=== PATIENT | female | born 1945 ===

== ENCOUNTER 2018-11-23 13:44 | Inpatient (IN) | payer OTHER ==
--- NOTE | 2018-11-23 13:54 | C.PDOC ---
History Of Present Illness 73 y/o female pt presents to the ER c/o left 4th finger pain. Pt reports she was in her bedroom today when she got up and felt dizzy and almost passed out. Pt fell and landed on her left hand, injuring her finger. Associated sx includes intermittent dizziness. Pt denies headache, chest pain and SOB. Time Seen by Provider: 11/23/18 13:52 History Per: Patient History/Exam Limitations: no limitations Onset/Duration Of Symptoms: Hrs Current Symptoms Are (Timing): Still Present Quality: "Pain" Severity: Moderate Pain Scale Rating Of: 5 Past Medical History Reviewed: Historical Data, Nursing Documentation, Vital Signs - Medical History PMH: Anemia, Dementia, Depression, Diabetes, Gall Bladder Disease, HTN, Hypercholesterolemia, Hyperthyroidism, Hypothyroidism Surgical History: Appendectomy, Cholecystectomy - [facility] Procedures EXERCISE TREATMENT OF MUSCULOSK WHOLE USING ASSIST EQUIPMENT (03/22/18) INDIVIDUAL PSYCHOTHERAPY, BEHAVIORAL (03/22/18) Family History: States: Unknown Family Hx - Social History Hx Tobacco Use: No Hx Alcohol Use: No Hx Substance Use: No Review Of Systems Except As Marked, All Systems Reviewed And Found Negative. Cardiovascular: Negative for: Chest Pain Respiratory: Negative for: Shortness of Breath Musculoskeletal: Positive for: Other (left 4th finger pain ) Neurological: Positive for: Dizziness (intermittent ). Negative for: Headache Physical Exam - Physical Exam Appears: Non-toxic, No Acute Distress Skin: Warm, Dry Head: Atraumatic, Normacephalic, No Tenderness, No Swelling, No Abrasion Eye(s): bilateral: Normal Inspection, PERRL, EOMI Ear(s): Bilateral: Normal Nose: Normal Oral Mucosa: Moist Tongue: Normal Appearing Lips: Normal Appearing Teeth: Normal Dentition Throat: Normal Neck: Normal ROM, No Midline Cervical Tenderness, No Paracervical Tenderness, Supple Chest: Symmetrical, No Deformity, No Tenderness Cardiovascular: Rhythm Regular Respiratory: Normal Breath Sounds, No Rales, No Rhonchi, No Wheezing Gastrointestinal/Abdominal: Soft, No Tenderness Back: Normal Inspection Extremity: Normal ROM (x4), Capillary Refill (<2 sec), Deformity (left 4th finger), Swelling (left 4th finger ), Other (ecchymosis on left 4th finger ) Pulses: Left Radial: Normal, Right Radial: Normal Neurological/Psych: Oriented x3, Normal Speech, Normal Cognition, Normal Motor, Normal Sensation, Normal Reflexes, No Other (ataxia ) Gait: Steady ED Course And Treatment - Laboratory Results Result Diagrams: 11/23/18 14:24 11/23/18 14:24 ECG Rhythm: Sinus Tachycardia Interpretation Of ECG: Q waves no ST elevation Rate From EC - Other Rad left hand 4th finger X-Ray: Interpreted by Me, Viewed By Me Interpretation: proximal interphalangeal joint dislocation in 4th finger Medical Decision Making Medical Decision Making: Plans: -- EKG -- Chem labs -- blood work -- antivert -- ibuprofen -- left hand XR -- UA 3:57 Dr. Suarez accepted patient to telemetry Reassess: left 4th finger was reduced by pulling and splinted. Pt was instructed to f/u with hand specialist in 1-2 days. Pt neurovascular exam was normal after reduction and patient tolerated the procedure well. Disposition Discussed With : Emmett Suarez Doctor Will See Patient In The: Hospital Counseled Patient/Family Regarding: Studies Performed, Diagnosis - Disposition Disposition: HOSPITALIZED Disposition Time: 15:38 Condition: GUARDED - Clinical Impression Clinical Impression: Fracture/dislocation, finger, proximal/middle phalanx, Uncontrolled diabetes mellitus, Dizziness, Near syncope - Scribe Statement The provider has reviewed the documentation as recorded by the Scribe Perez Do Provider Attestation: All medical record entries made by the Scribe were at my direction and personally dictated by me. I have reviewed the chart and agree that the record accurately reflects my personal performance of the history, physical exam, medical decision making, and the department course for this patient. I have also personally directed, reviewed, and agree with the discharge instructions and disposition.
[2018-11-23 13:55] VITALS: BMI 23.9
[2018-11-23 14:27] LABS: BASO % 0.5 % (0.0-2.0); EOS % 0.3 % (0.0-4.0); HEMOGLOBIN 15.7 g/dL (11.0-16.0); LYMPH # 2.1 K/uL (1.0-4.3); LYMPH % 24.5 % (20.0-40.0); MEAN CELL VOLUME 92.4 fL (81.0-99.0); MEAN CORPUSCULAR HGB CONC 33.6 g/dL (33.0-37.0); MEAN PLATELET VOLUME 8.2 fL (7.2-11.7); MONO # 0.5 K/uL (0.0-0.8); MONO % 5.4 % (0.0-10.0); NEUT # 5.8 K/uL (1.8-7.0); NEUT % 69.3 % (50.0-75.0); NRBC % 0.1 % (0.0-2.0); RBC 5.04 Mil/uL (3.80-5.20); RED CELL DISTRIBUTION WIDTH 14.2 % (11.5-14.5); WHITE BLOOD COUNT 8.4 K/uL (4.8-10.8)
--- NOTE | 2018-11-23 14:39 | RAD ---
PROCEDURE: Left Hand Radiographs. HISTORY: trauma COMPARISON: None. FINDINGS: BONES: There is diffuse bone demineralization. There is dorsal and medial subluxation of the proximal interphalangeal joint of the 4th digit. There is a small ossific density lateral to the base of the proximal phalanx.. There is an expansile lytic lesion in the base of the proximal phalanx of the 2nd digit with presumable central calcifications which may represent an enchondroma. JOINTS: Mild degenerative osteoarthrosis in the interphalangeal joints. SOFT TISSUES: Soft tissue swelling in the proximal 4th digit. OTHER FINDINGS: None. IMPRESSION: Question of small avulsion fracture in the lateral base of the proximal phalanx of the 4th digit. Dorsal and medial subluxation of the proximal interphalangeal joint of the 4th digit with surrounding soft tissue swelling.
[2018-11-23 14:46] LABS: SQUAMOUS EPITHIAL 2 /hpf (0-5); URINE BILIRUBIN NEGATIVE (NEGATIVE); URINE BLOOD NEGATIVE (NEGATIVE); URINE CLARITY Clear (Clear); URINE COLOR Yellow (YELLOW); URINE GLUCOSE (UA) 3+ mg/dL (Normal); URINE LEUKOCYTE ESTERASE NEG Leu/uL (Negative); URINE PROTEIN NEGATIVE (NEGATIVE); URINE UROBILINOGEN NORMAL mg/dL (0.2-1.0)
[2018-11-23] MEDS ORDERED: Sodium Chloride 0.9% 1,000 ML IV ONE (14:50)
[2018-11-23 14:51] LABS: ALB/GLOB RATIO 1.3 (1.0-2.1); ALBUMIN 4.3 g/dL (3.5-5.0); ALT/SGPT 265 U/L (9-52); AST/SGOT 67 U/L (14-36); BLOOD UREA NITROGEN 16 mg/dL (7-17); CALCIUM 9.1 mg/dl (8.6-10.4); GFR NON-AFRICAN AMERICAN > 60
[2018-11-23] MEDS ORDERED: (Novolin R) Insulin Human Regular 100 units/ml vial IVP STA (14:51)
[2018-11-23] MEDS ORDERED: Sodium Chloride 0.9% 1,000 ML ONE (15:09)
[2018-11-23 15:12] LABS: VENOUS BLOOD GAS BASE EXCESS -1.4 mmol/L (0.0-2.0); VENOUS BLOOD GAS PCO2 36 mmHg (40-60); VENOUS BLOOD GAS PO2 49 mm/Hg (30-55); VENOUS BLOOD PH 7.41 (7.32-7.43)
[2018-11-23] MEDS ORDERED: (Novolin R) Insulin Human Regular 100 units/ml vial ONE (15:13)
[2018-11-23] MEDS ORDERED: Glucagon Recombinant 1 mg Inj IM PRN (16:38)
[2018-11-23] MEDS ORDERED: Dextrose 50% SYRINGE Inj (50 ml) IV PRN (16:38)
--- NOTE | 2018-11-23 16:40 | CT ---
Date of service: 11/23/2018 PROCEDURE: CT HEAD WITHOUT CONTRAST HISTORY: Dizzy COMPARISON: None available. TECHNIQUE: Axial computed tomography images were obtained through the head/brain with intravenous contrast. Radiation dose: Total exam DLP = 1056.71 mGy-cm. This CT exam was performed using one or more of the following dose reduction techniques: Automated exposure control, adjustment of the mA and/or kV according to patient size, and/or use of iterative reconstruction technique. FINDINGS: HEMORRHAGE: No intracranial hemorrhage. BRAIN: There are mild chronic microangiopathic changes. There is no mass, mass effect or abnormal extra-axial fluid collection. There is no territorial infarction. The midline sagittal structures are normal. VENTRICLES: There is moderate age-related global parenchymal volume loss and proportionate enlargement of the ventricles and cortical sulci. CALVARIUM: The skull base and calvarium are normal. PARANASAL SINUSES: Unremarkable as visualized. No significant inflammatory changes. MASTOID AIR CELLS: Unremarkable as visualized. No mastoid effusion. OTHER FINDINGS: None. IMPRESSION: No acute intracranial abnormality. Mild chronic changes and moderate age-related global parenchymal volume loss.
--- NOTE | 2018-11-23 16:48 | RAD ---
Date of service: 11/23/2018 PROCEDURE: CHEST RADIOGRAPH, 1 VIEW HISTORY: weak COMPARISON: None available. FINDINGS: LUNGS: Clear. PLEURA: No pneumothorax or pleural fluid seen. CARDIOVASCULAR: Atherosclerotic calcifications identified primarily aortic arch. No radiographic findings to suggest acute or significant cardiovascular disease. OSSEOUS STRUCTURES: No significant abnormalities. VISUALIZED UPPER ABDOMEN: Normal. OTHER FINDINGS: Small hiatal hernia. IMPRESSION: No active disease.
[2018-11-23] MEDS ORDERED: Potassium Chloride 20 mEq ER Tab PO STA (17:27)
[2018-11-23] MEDS: (Novolog) Insulin Aspart, Recombinant 100 u/ml 10 ml vial SC SCH (21:22)
[2018-11-23] MEDS: (Lantus) Insulin Glargine, Recombinant SC SCH (22:54)
[2018-11-24] MEDS: Sodium Chloride 0.9% 1,000 ML IV SCH ×2 (02:30→14:45)
[2018-11-24] MEDS: Levothyroxine 75 MCG TAB PO SCH (06:22)
[2018-11-24] MEDS: (Novolog) Insulin Aspart, Recombinant 100 u/ml 10 ml vial SC SCH ×7 (07:23→21:26)
[2018-11-24 07:44] LABS: ALB/GLOB RATIO 1.2 (1.0-2.1); ALBUMIN 3.5 g/dL (3.5-5.0); ALT/SGPT 172 U/L (9-52); AST/SGOT 36 U/L (14-36); BILIRUBIN,DIRECT 0.3 mg/dL (0.0-0.4); BLOOD UREA NITROGEN 15 mg/dL (7-17); CALCIUM 8.6 mg/dl (8.6-10.4); GFR NON-AFRICAN AMERICAN > 60
[2018-11-24] MEDS: Pantoprazole 40 mg EC Tab PO SCH (09:22)
[2018-11-24] MEDS: Enoxaparin 40 mg Syringe SC SCH (09:23)
[2018-11-24] MEDS: (Lantus) Insulin Glargine, Recombinant SC SCH ×2 (21:25→21:27)
--- NOTE | 2018-11-24 22:22 | CP.PCM.HP ---
Past Patient History - Past Medical History & Family History Past Medical History?: Yes - Past Social History Smoking Status: Never Smoked - CARDIAC Hx Hypercholesterolemia: Yes Hx Hypertension: Yes - PULMONARY Hx Respiratory Disorders: No - NEUROLOGICAL Hx Dementia: Yes - HEENT Hx HEENT Problems: No - RENAL Hx Chronic Kidney Disease: No - ENDOCRINE/METABOLIC Hx Hyperthyroidism: Yes Hx Hypothyroidism: Yes - HEMATOLOGICAL/ONCOLOGICAL Hx Anemia: Yes - INTEGUMENTARY Hx Dermatological Problems: No - MUSCULOSKELETAL/RHEUMATOLOGICAL Hx Falls: Yes - GASTROINTESTINAL Hx Gall Bladder Disease: Yes - GENITOURINARY/GYNECOLOGICAL Hx Genitourinary Disorders: No - PSYCHIATRIC Hx Depression: Yes Hx Substance Use: No - SURGICAL HISTORY Hx Appendectomy: Yes Hx Cholecystectomy: Yes - ANESTHESIA Hx Anesthesia: Yes Hx Anesthesia Reactions: No Hx Malignant Hyperthermia: No Meds Allergies/Adverse Reactions: Allergies Allergy/AdvReac Type Severity Reaction Status Date / Time No Known Allergies Allergy Verified 11/23/18 14:25 Results - Vital Signs Recent Vital Signs: Last Vital Signs Temp 97.7 F 11/24/18 07:00 Pulse 84 11/24/18 12:00 Resp 20 11/24/18 07:00 BP 125/76 11/24/18 09:22 Pulse Ox 96 11/24/18 07:00 - Labs Result Diagrams: 11/23/18 14:24 11/24/18 07:02 Labs: Laboratory Results - last 24 hr 11/24/18 11/24/18 11/24/18 06:16 07:02 07:02 Sodium 140 Potassium 3.7 Chloride 109 H Carbon Dioxide 25 Anion Gap 10 BUN 15 Creatinine 0.5 L Est GFR ( Amer) > 60 Est GFR (Non-Af Amer) > 60 POC Glucose (mg/dL) 134 H Random Glucose 102 D Hemoglobin A1c Calcium 8.6 Total Bilirubin 0.4 Direct Bilirubin 0.3 AST 36 D ALT 172 H D Alkaline Phosphatase 191 H D Troponin I < 0.0120 Total Protein 6.5 Albumin 3.5 Globulin 3.0 Albumin/Globulin Ratio 1.2 TSH 3rd Generation 6.53 H 11/24/18 11/24/18 11/24/18 07:02 12:24 16:51 Sodium Potassium Chloride Carbon Dioxide Anion Gap BUN Creatinine Est GFR ( Amer) Est GFR (Non-Af Amer) POC Glucose (mg/dL) 142 H 245 H Random Glucose Hemoglobin A1c 11.6 H Calcium Total Bilirubin Direct Bilirubin AST ALT Alkaline Phosphatase Troponin I Total Protein Albumin Globulin Albumin/Globulin Ratio TSH 3rd Generation
[2018-11-25] MEDS: Levothyroxine 75 MCG TAB PO SCH (05:52)
[2018-11-25] MEDS: (Novolog) Insulin Aspart, Recombinant 100 u/ml 10 ml vial SC SCH ×7 (08:15→21:50)
--- NOTE | 2018-11-25 08:30 | HP ---
CHIEF COMPLAINT: Pain in the left fourth finger x1 day. HISTORY OF PRESENT ILLNESS: This is a 73-year-old female with history of type 2 diabetes, hypertension, hyperlipidemia who is noncompliant with diet and medication and follow up and on the day of admission, she was going to her bathroom, she got dizzy and she almost passed out and she hurt her left fourth digit, which is swollen red and warm. The patient landed on her left hand. The patient has dizziness and according to the patient when she gets up, she is dizzy. The patient is extremely noncompliant. She is poor historian. She denies any chest pain. She has weakness, palpitation, dizziness. She has polyuria, polydipsia, polyphagia. She denies any hematuria or pyuria. She denies any sneezing, itchy eyes, itchy nose. There is no history of prior trauma, fall, or head injury. There is no history of cough, sore throat. There is no history of nausea, vomiting, diarrhea. There is no history of skin rash, itchy eyes, itchy nose. She has tingling and numbness in the feet. She denies any symptoms in the hand before this injury. PAST MEDICAL HISTORY: Diabetes, hypertension, hyperlipidemia, noncompliant. CURRENT MEDICATIONS: She is on metformin, Klonopin, Ambien, Seroquel, Protonix, Synthroid, lisinopril, Humalog, Tresiba, Depakote, Lipitor, and aspirin. ALLERGIES: UNKNOWN. PHYSICAL EXAMINATION GENERAL: An elderly female, in distress, complaining of dizziness. VITAL SIGNS: Blood pressure 127/80, pulse 80, respiratory rate 18, temperature 97.6. SKIN: Dry, poor turgor. HEENT: Atraumatic, normocephalic. Negative pallor. Negative jaundice. Extraocular movements are intact. NECK: Supple without neck pain. No JVD. No lymph node. CHEST: Chest wall, bilateral symmetrical expansion. LUNGS: Clear. No rales. No rhonchi. CARDIOVASCULAR SYSTEM: PMI not localized. S1 and S2 regular. No heave. No thrill. ABDOMEN: Soft, nontender. Bowel sounds are positive. RECTAL: No masses. No bleed. EXTREMITIES: No clubbing, cyanosis, or edema. Left fourth finger is swollen, red and warm and it has an immobilizer on it. CENTRAL NERVOUS SYSTEM: The patient is awake, alert, and oriented x3. Cranial nerves II through XII are normal. Gait, I am unable to check. She is dizzy. ASSESSMENT: 1. Dehydration with poorly controlled diabetes. The patient's sugars were high, although ketones are negative. 2. Hypertension. 3. Type 2 diabetes. 4. Fall with left hand injury. PLAN: Admit. Detailed orders are written. Seen and examined. Emmett Suarez MD
[2018-11-25] MEDS: Enoxaparin 40 mg Syringe SC SCH (10:09)
[2018-11-25] MEDS: Pantoprazole 40 mg EC Tab PO SCH (10:09)
--- NOTE | 2018-11-25 14:51 | CARD ---
APPROVED REPORT Date of service: 11/23/2018 EKG Measurement Heart [id number] <Conclusion> Sinus tachycardia Right superior axis deviation Inferior infarct, age undetermined Cannot rule out Anterior infarct, age undetermined Abnormal ECG
[2018-11-25] MEDS: (Lantus) Insulin Glargine, Recombinant SC SCH (21:50)
--- NOTE | 2018-11-25 22:38 | CP.PCM.PN ---
Subjective - Subjective Subjective: dictated Objective - Vital Signs/Intake and Output Vital Signs (last 24 hours): Temp Pulse Resp BP Pulse Ox 98.3 F 76 20 125/79 96 11/25/18 15:46 11/25/18 15:46 11/25/18 15:46 11/25/18 15:46 11/25/18 15:46 - Medications Medications: Current Medications Acetaminophen (Tylenol 325mg Tab) 650 mg PO Q6 PRN PRN Reason: Pain, moderate (4-7) Last Admin: 11/25/18 08:25 Dose: 650 mg Aspirin (Ecotrin) 81 mg PO DAILY [facility] Last Admin: 11/25/18 10:08 Dose: 81 mg Clonazepam (Klonopin) 0.5 mg PO Q8H [facility] Last Admin: 11/25/18 18:23 Dose: 0.5 mg Dextrose (Dextrose 50% Inj) 0 ml IV STAT PRN; Protocol PRN Reason: Hypoglycemia Protocol Dextrose (Glutose 15) 0 gm PO ONCE PRN; Protocol PRN Reason: Hypoglycemia Protocol Enoxaparin Sodium (Lovenox) 40 mg SC DAILY [facility] Last Admin: 11/25/18 10:09 Dose: 40 mg Glucagon (Glucagen Diagnostic Kit) 0 mg IM STAT PRN; Protocol PRN Reason: Hypoglycemia Protocol Dextrose (Dextrose 5% In Water 1000 Ml) 1,000 mls @ 0 mls/hr IV .Q0M PRN; Protocol PRN Reason: Hypoglycemia Protocol Insulin Aspart (Novolog) 0 unit SC ACHS [facility]; Protocol Last Admin: 11/25/18 21:50 Dose: Not Given Insulin Aspart (Novolog) 5 unit SC AC [facility] Last Admin: 11/25/18 16:49 Dose: Not Given Insulin Glargine (Lantus) 20 unit SC HS [facility] Last Admin: 11/25/18 21:50 Dose: Not Given Levothyroxine Sodium (Synthroid) 75 mcg PO 0630 [facility] Last Admin: 11/25/18 05:52 Dose: 75 mcg Meclizine HCl (Antivert) 25 mg PO Q8 PRN PRN Reason: Dizziness Metformin HCl (Glucophage) 500 mg PO BIDCC [facility] Last Admin: 11/25/18 18:20 Dose: 500 mg Pantoprazole Sodium (Protonix Ec Tab) 40 mg PO DAILY [facility] Last Admin: 11/25/18 10:09 Dose: 40 mg Quetiapine Fumarate (Seroquel) 400 mg PO HS [facility] Last Admin: 11/25/18 21:51 Dose: 400 mg Rosuvastatin Calcium (Crestor) 40 mg PO HS [facility] Zolpidem Tartrate (Ambien) 5 mg PO [facility] Last Admin: 11/25/18 21:50 Dose: 5 mg - Labs Labs: 11/23/18 14:24 11/24/18 07:02
--- NOTE | 2018-11-26 02:55 | CON ---
DATE: 11/25/2018 REASON FOR CONSULTATION: Dizziness. HISTORY OF PRESENT ILLNESS: The patient is a 73-year-old female who according to her has history of dizziness and multiple falls in the past. She sustained a dizzy spell at home, fell and fractured and sustained and left fourth finger pain. The patient denies losing consciousness and denies any head injury. The patient denies any major injury or fracture during her previous falls. The patient stated that she fell on the wooden floor at home, and she lives by herself. Her children live in [place]. The patient is unaware of any chest pain and does not recall experiencing palpitation prior to her fall episode. SOCIAL HISTORY Nonsmoker, nondrinker. She lives by herself. MEDICATIONS: Antivert 25 mg every 8 hours, Crestor 40 mg once a day, aspirin 81 mg once a day, metformin 500 mg twice a day, Lovenox 40 mg subcutaneous once a day, Protonix 40 mg p.o. once a day, Synthroid 75 mcg once a day, Seroquel 200 mg at bedtime. REVIEW OF SYSTEMS No nausea or vomiting. No fever or chills. PAST MEDICAL HISTORY: No history of stroke or heart attack according to the patient. PHYSICAL EXAMINATION: GENERAL: The patient is an elderly female who does not appear to be in acute distress. VITAL SIGNS: Blood pressure 119/76, heart rate 79, temperature 98.2, respirations 18. HEENT: Normocephalic. CHEST: Clear. HEART: S1 and S2 regular. ABDOMEN: Soft. EXTREMITIES: No edema. Support is applied to the left ring finger. LABORATORY DATA: Yesterday's SMA-7, sodium 140, potassium 3.7, chloride 109, CO2 of 25, glucose 102, BUN 15, creatinine 0.5. Alkaline phosphatase is elevated at 172. Two sets of troponins are negative. Blood sugar on admission was 462 and potassium on admission was 3.4. Alkaline phosphatase on admission was 253. CBC on admission 2 days ago was within normal limits. Repeat head CT scan without contrast showed no acute intracranial abnormality. Mild chronic changes and moderate age-related global parenchymal volume loss. Echocardiography study performed in March of last year was a normal study. Admitting EKG revealed sinus tachycardia at the rate of 105, old inferior infarct and poor R-wave progression. ASSESSMENT: 1. Near-syncopal episode and fall. Hand x-ray revealed questionable small avulsion fracture of the lateral base of the proximal phalanx of the fourth digit, dorsal and medial subluxation of the proximal interphalangeal joint of the fourth digit. 2. Uncontrolled diabetes mellitus. 3. Hypokalemia, on presentation. 4. Cholestasis. 5. 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 RECOMMENDATIONS: Hold Crestor therapy for now. Continue aspirin 81 mg once a day, subcutaneous Lovenox 40 mg daily, Synthroid 75 mcg once a day. TSH level is still elevated at 6.53. Obtain serum D-dimer and carotid Doppler and consider abdominal ultrasound. Koko Collins MD
--- NOTE | 2018-11-26 03:23 | PN ---
DATE: 11/25/2018 SUBJECTIVE: The patient, Felipa, is likely less dizziness. Her blood pressure is better. She is afebrile. Her blood sugars are relatively better controlled. No nausea or vomiting. PHYSICAL EXAMINATION: VITAL SIGNS: Blood pressure 125/79, pulse 73, respiratory rate 20, and temperature 98.3. LUNGS: Clear. CARDIOVASCULAR SYSTEM: S1 and S2 regular. ABDOMEN: Soft, nontender. Bowel sounds are positive. ASSESSMENT: 1. Dizziness, near syncope. Status post intravenous hydration. Blood pressure medication has been reduced. 2. Poorly controlled diabetes. It is under better control. 3. Vertigo. 4. Osteoarthritis. PLAN: Continue current medications and cardiology evaluation. Monitor the patient. Emmett Suarez MD
--- NOTE | 2018-11-26 05:04 | CON ---
DATE: 11/25/2018 PSYCHIATRIC CONSULTATION CHIEF COMPLAINT AND REASON FOR CONSULTATION: The patient was referred by Dr. Suarez as the patient has history of bipolar and dementia, review of multiple psych medications. The patient states that she is dizzy and was passed off, history of falling. HISTORY OF PRESENT ILLNESS: This is a case of a 73-year-old female who came to the emergency room complaining of left fourth finger pain. The patient reports that she was in her bedroom and got dizzy after she got up and almost passed off. She fell, landed on her left hand injuring her finger. The patient has intermittent dizziness. The patient referred for comanagement as the patient has history of bipolar and dementia. The patient had previous admission at [facility] for depression and history of suicidal attempts and drug overdose. The patient states that she has been following by Dr. Laura German, psychiatrist for many, many years, and the patient states that she also sees Dr. Mccallum, but the patient reports that her doctor recently retired. She was given a few months refill and was given the following medications, Seroquel 400 mg at bedtime, Ambien 10 mg at bedtime, and Klonopin 0.5 mg 3 times a day. She has been compliant with medications but having some increase in her somatic symptoms. The patient is worried that she will have no psychiatrist to give her medications, so far she has some refills. The patient is also forgetful and also concerned about medical problems. She states she sees Dr. Mccallum. PAST PSYCHIATRIC HISTORY: History of dementia and bipolar; history of depression, on Klonopin, Seroquel and Ambien. PAST MEDICAL HISTORY: History of anemia, diabetes, gallbladder disease, hypertension, hypercholesteremia, hypothyroidism, history of appendectomy and cholecystectomy. DRUG AND ALCOHOL HISTORY: She denies any. ALLERGIES: NO KNOWN ALLERGIES. PSYCHOSOCIAL HISTORY: The patient lives by herself. The patient is retired. LIST OF CURRENT MEDICATIONS: Includes meclizine 25 mg every 8 hours, Crestor, Ecotrin, Glucophage. The patient was taking Klonopin 0.5 mg every 8 p.r.n. as well Seroquel 200 mg at bedtime and then Synthroid as well as Tylenol, Protonix, and Glucophage. PHYSICAL EXAMINATION: VITAL SIGNS: Temperature is 98.3, pulse rate 76, blood pressure 125/79, respirations 20, and oxygen saturation is 96%. REVIEW OF SYSTEMS: GENERAL: The patient is alert, verbal, seen with her family member, anxious. She wants her Seroquel, Klonopin, and Ambien. She says she has been not sleeping well, feeling anxious.without her previous doses of psych meds. SKIN: No diaphoresis. HEENT: Complaining of headache with dizziness. The patient is still eating. NECK: Supple. RESPIRATORY: No dyspnea. CARDIOVASCULAR: No chest pain. GASTROINTESTINAL: No nausea. No vomiting. EXTREMITIES: The patient moves extremities. MUSCULOSKELETAL: Feels weak. NEUROLOGIC: Alert and oriented x3. GENITOURINARY: No urinary problems. MENTAL STATUS EXAMINATION: Elderly female who looks stated age. Very anxious, somatic. Clinically depressed. Affect is reactive. Speech, spontaneous. Thought process, coherent. Thought content, no overt psychosis. No suicidal or homicidal ideation. The patient wants to resume her Seroquel 400 at bedtime, Ambien 10 as well as Klonopin 0.5 mg three times a day. I have told her that we do not give 10 mg of Ambien, give only 5, per pharmacy protocol which she is willing to do. The patient states that she is looking for new psychiatrist to follow her as Dr. German retired from her practice 10/2018. Stated no psychosis. No suicidal or homicidal ideation. Attention and memory, limited. Insight and judgment, limited. Impulse control is fair at this time. The patient is oriented x3 but forgetful. IMPRESSION: History of dementia with mood changes as well as bipolar disorder. PLAN AND RECOMMENDATIONS: The patient was seen. Meds reviewed. We will give Ambien 5 mg at bedtime as well as change the Klonopin to 0.5 mg every 8H standing and then change the dose of Seroquel to 400 mg at bedtime. We will monitor her vital signs. The patient needs to see another psychiatrist as her psychiatrist retired and needs to be followed up. Continue treatment plan as outlined. The patient's blood sugars seem to be controlled. Her B12 level now is 50. Her folate is greater than 20 and then her T4 is 7.88. Thank you very much for the consult. Rancho Cordero MD [facility]
[2018-11-26] MEDS: Levothyroxine 75 MCG TAB PO SCH (05:38)
[2018-11-26] MEDS: (Novolog) Insulin Aspart, Recombinant 100 u/ml 10 ml vial SC SCH ×7 (08:18→21:44)
[2018-11-26] MEDS: Enoxaparin 40 mg Syringe SC SCH (10:34)
[2018-11-26] MEDS: Pantoprazole 40 mg EC Tab PO SCH (10:34)
--- NOTE | 2018-11-26 13:24 | VASCLAB ---
Date of service: 11/25/2018 PROCEDURE: Carotid Duplex Exam. HISTORY: dizziness COMPARISON: None available. TECHNIQUE: Grayscale and duplex Doppler evaluation of the cervical carotid and vertebral arteries were performed. The common carotid, carotid bifurcations and cervical Internal Carotid Artery (ICA) and proximal External Carotid Artery (ECA) were evaluated. The vertebral arteries were evaluated for gross patency and flow direction. Report prepared by Micky Onofre, BS, RVT FINDINGS: RIGHT CAROTID ARTERIES: 1. Common Carotid Artery: No significant focal plaque formation of the right common carotid artery. Maximum Peak Systolic velocity: 72 cm/sec: End-diastolic velocity 17 cm/sec. 2. Carotid Bifurcation: plaque formation. Maximum Peak Systolic velocity: 60 cm/sec: End-diastolic velocity 15 cm/sec. 3. Internal Carotid Artery: Plaque description: 3.1. Proximal Segment: Peak systolic velocity 78 cm/sec: End-diastolic velocity 26 cm/sec - % stenosis 0-15% 3.2. Middle Segment: Peak systolic velocity 79 cm/sec: End-diastolic velocity 19 cm/sec - % stenosis 0-15% 3.3. Distal Segment: Peak systolic velocity 79 cm/sec: End-diastolic velocity 22 cm/sec - % stenosis 0-15% 4. External Carotid Artery: No significant focal plaque formation. Peak systolic velocity 81 cm/sec 5. ICA/CCA Ratio: 1.1 LEFT CAROTID ARTERIES: 1. Common Carotid Artery: No significant focal plaque formation of the left common carotid artery. Maximum Peak Systolic velocity: 80 cm/sec: End-diastolic velocity 22 cm/sec. 2. Carotid Bifurcation: plaque formation. Maximum Peak Systolic velocity: 74 cm/sec: End-diastolic velocity 22 cm/sec. 3. Internal Carotid Artery: Plaque description: 3.1. Proximal Segment: Peak systolic velocity 65 cm/sec: End-diastolic velocity 16 cm/sec - % stenosis 0-15% 3.2. Middle Segment: Peak systolic velocity 94 cm/sec: End-diastolic velocity 27 cm/sec - % stenosis 0-15% 3.3. Distal Segment: Peak systolic velocity 76 cm/sec: End-diastolic velocity 27 cm/sec - % stenosis 0-15% 4. External Carotid Artery: No significant focal plaque formation. Peak systolic velocity 80 cm/sec 5. ICA/CCA Ratio: 1.2 VERTEBRAL ARTERIES: 1. Right Vertebral Artery: The right vertebral artery flow direction is antegrade. 2. Left Vertebral Artery: The left vertebral artery flow direction is antegrade. OTHER FINDINGS: 1. Right Brachial Blood pressure: 142 mmHg. 2. Left Brachial Blood pressure: 140 mmHg. 3. No atherosclerotic calcification present IMPRESSION: RIGHT: Duplex scan does not suggest hemodynamically significant stenosis of the right extracranial carotid arteries. LEFT: Duplex scan does not suggest hemodynamically significant stenosis of the left extracranial carotid arteries. Bilateral internal carotid artery tortuosity noted.
--- NOTE | 2018-11-26 21:28 | CP.PCM.PN ---
Subjective - Date & Time of Evaluation Date of Evaluation: 11/26/18 Time of Evaluation: 01:45 - Subjective Subjective: dictated Objective - Vital Signs/Intake and Output Vital Signs (last 24 hours): Temp Pulse Resp BP Pulse Ox 98.9 F 76 18 132/82 98 11/26/18 16:00 11/26/18 16:00 11/26/18 16:00 11/26/18 16:00 11/26/18 16:00 Intake and Output: 11/26/18 11/27/18 18:59 06:59 Intake Total 150 Balance 150 - Medications Medications: Current Medications Acetaminophen (Tylenol 325mg Tab) 650 mg PO Q6 PRN PRN Reason: Pain, moderate (4-7) Last Admin: 11/25/18 08:25 Dose: 650 mg Aspirin (Ecotrin) 81 mg PO DAILY [facility] Last Admin: 11/26/18 10:34 Dose: 81 mg Clonazepam (Klonopin) 0.5 mg PO Q8H [facility] Last Admin: 11/26/18 17:51 Dose: 0.5 mg Dextrose (Dextrose 50% Inj) 0 ml IV STAT PRN; Protocol PRN Reason: Hypoglycemia Protocol Dextrose (Glutose 15) 0 gm PO ONCE PRN; Protocol PRN Reason: Hypoglycemia Protocol Enoxaparin Sodium (Lovenox) 40 mg SC DAILY [facility] Last Admin: 11/26/18 10:34 Dose: 40 mg Glucagon (Glucagen Diagnostic Kit) 0 mg IM STAT PRN; Protocol PRN Reason: Hypoglycemia Protocol Insulin Aspart (Novolog) 0 unit SC ACHS [facility]; Protocol Last Admin: 11/26/18 17:53 Dose: Not Given Insulin Aspart (Novolog) 5 unit SC AC [facility] Last Admin: 11/26/18 17:53 Dose: Not Given Insulin Glargine (Lantus) 20 unit SC HS [facility] Last Admin: 11/25/18 21:50 Dose: Not Given Levothyroxine Sodium (Synthroid) 88 mcg PO 0630 [facility] Meclizine HCl (Antivert) 25 mg PO Q8 PRN PRN Reason: Dizziness Metformin HCl (Glucophage) 500 mg PO BIDCC [facility] Last Admin: 11/26/18 17:53 Dose: Not Given Pantoprazole Sodium (Protonix Ec Tab) 40 mg PO DAILY [facility] Last Admin: 11/26/18 10:34 Dose: 40 mg Quetiapine Fumarate (Seroquel) 400 mg PO HS [facility] Last Admin: 11/25/18 21:51 Dose: 400 mg Rosuvastatin Calcium (Crestor) 40 mg PO HS [facility] Zolpidem Tartrate (Ambien) 5 mg PO HS [facility] Last Admin: 11/25/18 21:50 Dose: 5 mg - Labs Labs: 11/23/18 14:24 11/24/18 07:02
[2018-11-26] MEDS: (Lantus) Insulin Glargine, Recombinant SC SCH (21:44)
--- NOTE | 2018-11-26 21:50 | PN ---
DATE: 11/26/2018 SUBJECTIVE: The patient denies chest pain. She is still experiencing dizziness. No reported arrhythmia. PHYSICAL EXAMINATION: VITAL SIGNS: Blood pressure 132/82, heart rate 76, temperature 98.9, respirations 18. HEENT: Normocephalic. CHEST: Clear. HEART: S1 and S2 regular. EXTREMITIES: No edema. LABORATORY DATA: Today's blood sugars are 176 and 182 respectively. Carotid Doppler revealed no significant disease. Repeat head CT scan done yesterday, no acute intracranial findings, mild chronic changes, and moderate age-related global parenchymal volume loss. ASSESSMENT: 1. Dizziness and near syncope. 2. A fall and fracture of the left ring finger. 3. Uncontrolled diabetes mellitus. 4. Cholestasis. 5. 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 RECOMMENDATIONS: Continue current Antivert, aspirin, metformin, prophylactic subcutaneous Lovenox, and Synthroid. Case was discussed with the HUMAN RESOURCES CLERK. Consider Neurology evaluation as well as brain MRI. Koko Collins MD
--- NOTE | 2018-11-26 23:49 | PN ---
DATE: 11/26/2018 SUBJECTIVE: The patient is seen in her room, still anxious and somatic but states that she is not sleeping well. The patient is currently back in her old regimen of psych meds. The patient was on Seroquel 400 mg at bedtime; Ambien 5 mg at bedtime, she used to take 10; and Klonopin 0.5 mg 3 times a day. The patient is asking for increase of medications especially Seroquel, but I told her that the dose is enough for her, and the patient has history of dizziness, and we do not want her to fall. She has agreed to take the current medications. Mood-miguel, she is anxious and somatic. PHYSICAL EXAMINATION: VITAL SIGNS: Temperature 98.9, pulse 76, blood pressure 132/82, respirations 18, oxygen saturation 98%. REVIEW OF SYSTEMS: GENERAL: The patient is alert, oriented x3. Seen in her room. Seems very anxious and somatic but doing better. SKIN: No diaphoresis. HEENT: No headache. Still complaining of dizziness at times. No blurring of vision. NECK: Supple. RESPIRATORY: No dyspnea. CARDIOVASCULAR: No chest pain. GASTROINTESTINAL: She is not eating well. EXTREMITIES: The patient moving her extremities. MUSCULOSKELETAL: Weak. NEUROLOGIC: Alert, oriented x3. GENITOURINARY: No urinary problems. MENTAL STATUS EXAMINATION: Elderly female, who looks stated age, alert and oriented x3, still somatic and anxious but doing a little better but still feeling depressed.. Speech spontaneous. Affect is reactive. Mood is dysphoric. Thought process, coherent. Thought content, no overt psychosis. No suicidal or homicidal ideation. Attention and memory seem to be limited. Insight and judgment is limited. Impulse control is fair at this time. IMPRESSION: History of dementia with mood changes as well as bipolar disorder. PLAN AND RECOMMENDATION: The patient is seen. Meds reviewed. Continue present management. Continue present psych meds. I do not advise the patient's meds to be increased at this time as the patient is taking high doses, and the patient is at risk of fall with increase of her medication. Psych-miguel, she should be doing well with this medication as prescribed before by her previous psychiatrist, retired, Dr. German. Rancho Cordero MD [facility] # [id number] MTDD
[2018-11-27 01:10] VITALS: RESP 20
--- NOTE | 2018-11-27 03:15 | PN ---
DATE: 11/26/2018 SUBJECTIVE: The patient Felipa is feeling better. She states not dizzy anymore. Blood pressure is a lot more stable. PHYSICAL EXAMINATION: VITAL SIGNS: Blood pressure 132/82, pulse 76, respiratory rate 18, and temperature 98.9. LUNGS: Clear. CARDIOVASCULAR SYSTEM: S1 and S2 regular. ABDOMEN: Soft. ASSESSMENT: 1. Dizziness. 2. Uncontrolled hypertension. Her blood pressure on the lower side. 3. Type II diabetes. 4. Hyperlipidemia. PLAN: Continue current medications. Physical therapy rehab. Emmett Suarez MD
[2018-11-27] MEDS: Levothyroxine 88 MCG TAB PO SCH (06:22)
[2018-11-27] MEDS: (Novolog) Insulin Aspart, Recombinant 100 u/ml 10 ml vial SC SCH ×7 (08:11→22:35)
[2018-11-27] MEDS: Pantoprazole 40 mg EC Tab PO SCH (09:46)
[2018-11-27] MEDS: Enoxaparin 40 mg Syringe SC SCH (09:46)
--- NOTE | 2018-11-27 10:57 | MRI ---
Date of service: 11/27/2018 PROCEDURE: MRI BRAIN WITHOUT CONTRAST HISTORY: dizziness COMPARISON: Unenhanced head CT 11/23/2018. TECHNIQUE: Multiplanar, multisequence MR images of the brain were obtained without intravenous contrast enhancement. FINDINGS: HEMORRHAGE: None DWI: No evidence of an acute or early subacute infarction. BRAIN PARENCHYMA: Good corticomedullary differentiation is seen. Proportional, diffuse expansion of the ventriculosulcal and cisternal spaces is appreciated with white matter lucency compatible with diffuse cerebral atrophy and chronic microangiopathy. No suspicious extra-axial fluid collection is identified and the midline brain anatomy appears grossly nonfocal as imaged. There is no mass effect throughout. Dilated perivascular spaces are favored over potential chronic lacune is at the inferior bilateral basal ganglia. VENTRICLES: Unremarkable. No hydrocephalus. CRANIUM: Unremarkable. ORBITS: Grossly unremarkable. PARANASAL SINUSES/MASTOIDS: Clear VASCULAR SYSTEM: Skull base flow voids intact. OTHER FINDINGS: None. IMPRESSION: Stable age-related degenerative findings are identified without acute intracranial changes including brain infarction.
--- NOTE | 2018-11-27 13:53 | CP.PCM.PCO ---
Physician Communication Note - Physician Communication Note Physician Communication Note: patient medically cleared for transfer to [facility] as per Dr. Suarez
[2018-11-27 15:23] LABS: BLOOD UREA NITROGEN 13 mg/dL (7-17); CALCIUM 8.9 mg/dl (8.6-10.4); GFR NON-AFRICAN AMERICAN > 60
--- NOTE | 2018-11-27 18:00 | PN ---
DATE: 11/27/2018 SUBJECTIVE: The patient is seen. The patient is feeling very depressed, not eating, still not sleeping, feeling hopeless and helpless and asking for more medications. The patient states that the medicines are not working. Patient has history of prior suicide attempt in the past and also seems to be unsafe for discharge to home at this time without proper adjustment in psychiatric medications. The patient was at [facility] last year, but does not want to go back. I did try to convince her to [facility] and she has agreed to go to [place] to be treated as inpatient for readjustment of her medications. The patient is on Seroquel 400 mg at bedtime; because she is not sleeping, Klonopin 0.5 mg every 8 hours, but states it is not effective in controlling anxiety and Ambien 5 mg at bedtime. REVIEW OF SYSTEMS: GENERAL: The patient is alert, verbal, depressed and seen in her room sitting. SKIN: No diaphoresis. HEENT: No dizziness, no headache. NECK: Supple. RESPIRATORY: No dyspnea. CARDIOVASCULAR: No chest pain. GASTROINTESTINAL: The patient is eating. EXTREMITIES: The patient is ambulatory. MUSCULOSKELETAL: Nonspecific. NEUROLOGIC: Alert, oriented x3. GENITOURINARY: No dysuria. PHYSICAL EXAMINATION: VITAL SIGNS: Temperature is 98.2, pulse 78, blood pressure 129/78, respirations 20, and oxygen saturation is 96%. I spoke with the nurse practitioner. The patient is medically cleared at this time to go for a [facility] admission. MENTAL STATUS EXAMINATION: Elderly female, who looks stated age, oriented x3, still depressed and anxious and somatic, seems to be preoccupied about her trouble sleeping and anxiety. Speech spontaneous. Affect is reactive. Mood is dysphoric. Thought process coherent. Thought content, no overt psychosis. No suicidal or homicidal ideation. Attention and memory seem to be fair. Insight and judgment is fair. Impulse control is fair. LABORATORY DATA: Review of her labs showed blood sugar is 156. IMPRESSION: History of bipolar and dementia with mood changes. PLAN AND RECOMMENDATIONS: The patient is seen. Meds reviewed. We will try to refer the [facility] [place] [facility] The patient is depressed and unsafe to be discharged to home; this is for readjustment of her meds. The patient is extremely somatic and also feeling hopeless and helpless and severe depression. Rancho Cordero MD
--- NOTE | 2018-11-27 19:53 | PN ---
DATE: 11/27/2018 SUBJECTIVE: The patient is depressed and crying, and she feels anxious. She was evaluated by Dr. Cordero two days ago. She denies any dizziness at this time. PHYSICAL EXAMINATION VITAL SIGNS: Blood pressure 129/78, heart rate 78, temperature 98.2, respirations 20. HEENT: Normocephalic. CHEST: Clear. HEART: S1 and S2 regular. EXTREMITIES: No edema. A support is applied to the broken left ring finger. DIAGNOSTIC DATA: Brain MRI done today revealed stable age-related degenerative findings without acute intracranial changes. LABORATORY DATA: Today's blood sugars are 156 and 347 respectively. ASSESSMENT: 1. Dizziness and near-syncope. 2. Status post fall with fracture of the left ring finger. 3. Depression. 4. Uncontrolled diabetes mellitus. 5. Cholestasis. 6. Abnormal EKG with evidence of possible old inferior infarct. RECOMMENDATIONS: Continue current Ambshannen, Antivert. Continue aspirin 81 mg once a day, clonazepam 0.5 mg every 8 hours, Lovenox 40 mg subcutaneously once a day, Synthroid 88 mcg once a day and Seroquel 400 mg at bedtime. Obtain repeat of the EKG. Koko Collins MD
[2018-11-27] MEDS ORDERED: Potassium Chloride 20 mEq/15 ml LIQ UD PO ONE (22:15)
[2018-11-27] MEDS: (Lantus) Insulin Glargine, Recombinant SC SCH (22:31)
--- NOTE | 2018-11-27 23:06 | CP.PCM.PN ---
Subjective - Date & Time of Evaluation Date of Evaluation: 11/27/18 Time of Evaluation: 13:47 - Subjective Subjective: dictated Objective - Vital Signs/Intake and Output Vital Signs (last 24 hours): Temp Pulse Resp BP Pulse Ox 98.2 F 78 20 129/78 96 11/27/18 07:00 11/27/18 07:00 11/27/18 07:00 11/27/18 07:00 11/27/18 07:00 Intake and Output: 11/27/18 11/28/18 18:59 06:59 Intake Total 250 Balance 250 - Medications Medications: Current Medications Acetaminophen (Tylenol 325mg Tab) 650 mg PO Q6 PRN PRN Reason: Pain, moderate (4-7) Last Admin: 11/25/18 08:25 Dose: 650 mg Aspirin (Ecotrin) 81 mg PO DAILY [facility] Last Admin: 11/27/18 09:46 Dose: 81 mg Clonazepam (Klonopin) 0.5 mg PO Q8H [facility] Last Admin: 11/27/18 18:10 Dose: 0.5 mg Dextrose (Dextrose 50% Inj) 0 ml IV STAT PRN; Protocol PRN Reason: Hypoglycemia Protocol Dextrose (Glutose 15) 0 gm PO ONCE PRN; Protocol PRN Reason: Hypoglycemia Protocol Enoxaparin Sodium (Lovenox) 40 mg SC DAILY [facility] Last Admin: 11/27/18 09:46 Dose: 40 mg Glucagon (Glucagen Diagnostic Kit) 0 mg IM STAT PRN; Protocol PRN Reason: Hypoglycemia Protocol Insulin Aspart (Novolog) 0 unit SC ACHS [facility]; Protocol Last Admin: 11/27/18 22:35 Dose: Not Given Insulin Aspart (Novolog) 5 unit SC AC [facility] Last Admin: 11/27/18 18:10 Dose: Not Given Insulin Glargine (Lantus) 20 unit SC HS [facility] Last Admin: 11/27/18 22:31 Dose: 20 unit Levothyroxine Sodium (Synthroid) 88 mcg PO 0630 [facility] Last Admin: 11/27/18 06:22 Dose: 88 mcg Meclizine HCl (Antivert) 25 mg PO Q8 PRN PRN Reason: Dizziness Metformin HCl (Glucophage) 500 mg PO BIDCC [facility] Last Admin: 11/27/18 18:11 Dose: Not Given Pantoprazole Sodium (Protonix Ec Tab) 40 mg PO DAILY [facility] Last Admin: 11/27/18 09:46 Dose: 40 mg Potassium Chloride (Potassium Chloride Oral Soln) 40 meq PO ONCE ONE Stop: 11/28/18 10:01 Quetiapine Fumarate (Seroquel) 400 mg PO HS [facility] Last Admin: 11/27/18 22:34 Dose: 400 mg Rosuvastatin Calcium (Crestor) 40 mg PO HS [facility] Zolpidem Tartrate (Ambien) 5 mg PO HS [facility] Last Admin: 11/27/18 22:31 Dose: 5 mg - Labs Labs: 11/23/18 14:24 11/27/18 13:30
--- NOTE | 2018-11-28 02:41 | PN ---
DATE: 11/27/2018 SUBJECTIVE: The patient, Felipa, is for [facility] unit. The patient is afebrile. No nausea or vomiting. She feels much better. Her dizziness has subsided. She denies any chest pain. PHYSICAL EXAMINATION: VITAL SIGNS: Blood pressure 129/78, pulse 78, respiratory rate 20, temperature 98.2. LUNGS: Clear. No rales. No rhonchi. CARDIOVASCULAR SYSTEM: S1 and S2 regular. No heave. No chills. ABDOMEN: Soft, nontender. Bowel sounds are positive. ASSESSMENT: 1. Hypokalemia. 2. Uncontrolled diabetes. 3. Uncontrolled hypertension. 4. Dizziness, rule out benign positional vertigo. PLAN: Continue to monitor the patient. The patient is for [facility] in a.m. Emmett Suarez MD
[2018-11-28] MEDS: Levothyroxine 88 MCG TAB PO SCH (05:38)
[2018-11-28] MEDS: Pantoprazole 40 mg EC Tab PO SCH (10:57)
[2018-11-28] MEDS: Potassium Chloride 20 mEq/15 ml LIQ UD PO ONE ×2 (10:58→14:57)
[2018-11-28] MEDS: Enoxaparin 40 mg Syringe SC SCH (10:58)
[2018-11-28] MEDS: (Novolog) Insulin Aspart, Recombinant 100 u/ml 10 ml vial SC SCH ×7 (10:59→21:40)
[2018-11-28] MEDS ORDERED: Potassium Chloride 20 mEq ER Tab PO ONE (12:45)
--- NOTE | 2018-11-28 14:50 | PN ---
DATE: 11/28/2018 SUBJECTIVE: The patient is seen. The patient has been accepted to go for Geropsych to [place]. The patient is still not eating, states that she has no appetite, appears clinically depressed. The patient signed voluntary consent for admission to the Geropsych unit. PHYSICAL EXAMINATION: VITAL SIGNS: Temperature is 98.3, pulse 80, blood pressure 100/62, respirations 20, and oxygen saturation 97%. Her blood sugar is 190. GENERAL: The patient is alert, oriented x3, but feeling weak. SKIN: No diaphoresis. HEENT: No headache, no dizziness. NECK: Supple. RESPIRATORY: No dyspnea. CARDIOVASCULAR: No chest pain. GASTROINTESTINAL: Poor appetite. No nausea or vomiting. EXTREMITIES: The patient moves extremities. MUSCULOSKELETAL: Weak. NEUROLOGIC: Alert, oriented x3. GENITOURINARY: No dysuria. MENTAL STATUS EXAMINATION: Elderly female, looks stated age, appears clinically depressed. Affect is reactive. Speech spontaneous. Thought process coherent. Thought content, no overt psychosis. No suicidal or homicidal ideation. The patient seems amenable to go for admission to the Geropsych unit. Attention and memory seem to be fair. Insight and judgment is fair. Impulse control is fair. IMPRESSION: History of bipolar as well as history of dementia. PLAN AND RECOMMENDATIONS: The patient is seen. Meds reviewed. _ The patient will be transferred to [place] for inpatient Geropsych admission.once bed is available. Rancho Cordero MD [facility]
[2018-11-28 15:52] LABS: BARBITURATES, UR NEGATIVE (NEGATIVE); BENZODIAZEPINES, UR NEGATIVE (NEGATIVE); OPIATES, UR NEGATIVE (NEGATIVE); PHENCYCLIDINE, UR NEGATIVE (NEGATIVE)
--- NOTE | 2018-11-28 18:55 | PN ---
DATE: 11/28/2018 SUBJECTIVE: The patient is still depressed. She denies any dizziness or chest pain. PHYSICAL EXAMINATION: VITAL SIGNS: Blood pressure 112/71, heart rate 88, temperature 98.4, respirations 20. HEENT: Normocephalic. CHEST: Clear. HEART: S1, S2 regular. EXTREMITIES: No edema. LABORATORY DATA. Today's blood sugars are 190 and 197 respectively. ASSESSMENT: 1. Dizziness and near syncope. 2. Status post fall with fracture of the left ring finger. 3. Uncontrolled diabetes mellitus. 4. Depression. 5. Hypothyroidism. RECOMMENDATIONS: Continue current Ambien and Antivert. Continue aspirin 81 mg once a day, subcutaneous Lovenox 40 mg once a day, Seroquel 400 mg once a day, Protonix 40 mg once a day, Synthroid 88 mcg daily. I did review the psychiatry evaluation by Dr. Cordero and the plan is to transfer the patient to Geriatric Psych Unit in [facility], which is okay from the cardiac point of view. Koko Collins MD
--- NOTE | 2018-11-28 20:40 | CP.PCM.PN ---
Subjective - Date & Time of Evaluation Date of Evaluation: 11/28/18 Time of Evaluation: 09:46 - Subjective Subjective: dictated Objective - Vital Signs/Intake and Output Vital Signs (last 24 hours): Temp Pulse Resp BP Pulse Ox 98.2 F 82 20 126/80 95 11/28/18 16:00 11/28/18 16:00 11/28/18 16:00 11/28/18 16:00 11/28/18 16:00 Intake and Output: 11/28/18 11/29/18 18:59 06:59 Intake Total 400 Balance 400 - Medications Medications: Current Medications Acetaminophen (Tylenol 325mg Tab) 650 mg PO Q6 PRN PRN Reason: Pain, moderate (4-7) Last Admin: 11/25/18 08:25 Dose: 650 mg Aspirin (Ecotrin) 81 mg PO DAILY [facility] Last Admin: 11/28/18 10:57 Dose: 81 mg Clonazepam (Klonopin) 0.5 mg PO Q8H [facility] Last Admin: 11/28/18 17:37 Dose: 0.5 mg Dextrose (Dextrose 50% Inj) 0 ml IV STAT PRN; Protocol PRN Reason: Hypoglycemia Protocol Dextrose (Glutose 15) 0 gm PO ONCE PRN; Protocol PRN Reason: Hypoglycemia Protocol Enoxaparin Sodium (Lovenox) 40 mg SC DAILY [facility] Last Admin: 11/28/18 10:58 Dose: 40 mg Glucagon (Glucagen Diagnostic Kit) 0 mg IM STAT PRN; Protocol PRN Reason: Hypoglycemia Protocol Insulin Aspart (Novolog) 0 unit SC ACHS [facility]; Protocol Last Admin: 11/28/18 17:30 Dose: Not Given Insulin Aspart (Novolog) 5 unit SC AC [facility] Last Admin: 11/28/18 17:30 Dose: Not Given Insulin Glargine (Lantus) 20 unit SC HS [facility] Last Admin: 11/27/18 22:31 Dose: 20 unit Levothyroxine Sodium (Synthroid) 88 mcg PO 0630 [facility] Last Admin: 11/28/18 05:38 Dose: 88 mcg Meclizine HCl (Antivert) 25 mg PO Q8 PRN PRN Reason: Dizziness Metformin HCl (Glucophage) 500 mg PO BIDCC [facility] Last Admin: 11/28/18 18:08 Dose: 500 mg Pantoprazole Sodium (Protonix Ec Tab) 40 mg PO DAILY [facility] Last Admin: 11/28/18 10:57 Dose: 40 mg Quetiapine Fumarate (Seroquel) 400 mg PO HS [facility] Last Admin: 11/27/18 22:34 Dose: 400 mg Rosuvastatin Calcium (Crestor) 40 mg PO HS [facility] Zolpidem Tartrate (Ambien) 5 mg PO HS [facility] Last Admin: 11/27/18 22:31 Dose: 5 mg - Labs Labs: 11/23/18 14:24 11/27/18 13:30
[2018-11-28] MEDS: (Lantus) Insulin Glargine, Recombinant SC SCH (21:41)
[2018-11-29] MEDS: Levothyroxine 88 MCG TAB PO SCH (06:14)
--- NOTE | 2018-11-29 06:44 | PN ---
DATE: 11/28/2018 SUBJECTIVE: The patient is feeling better and she is for transfer to [facility] psychiatric unit. No nausea, vomiting. No shortness of breath. PHYSICAL EXAMINATION: VITAL SIGNS: Blood pressure 126/80, pulse 82, respiratory rate 20, temperature 98.2. LUNGS: Clear. No rales. No rhonchi. CARDIOVASCULAR SYSTEM: S1, S2. Regular. ABDOMEN: Soft. ASSESSMENT: 1. Dehydration. Low blood pressure, resolved. 2. Poorly controlled diabetes. 3. Poorly controlled hypertension. 4. Depression. PLAN: Transfer to [facility]. Emmett Suarez MD
[2018-11-29] MEDS: (Novolog) Insulin Aspart, Recombinant 100 u/ml 10 ml vial SC SCH ×6 (08:31→17:30)
[2018-11-29] MEDS: Enoxaparin 40 mg Syringe SC SCH (11:23)
[2018-11-29] MEDS: Pantoprazole 40 mg EC Tab PO SCH (11:33)
--- NOTE | 2018-11-29 13:56 | PN ---
DATE: 11/29/2018 SUBJECTIVE: The patient is still clinically depressed. The patient has been accepted by Dr. Padilla of [place], the inpatient geriatric psychiatrist, and we will transfer the patient today. The patient is still amendable [facility]. She is still depressed, not eating, and cannot sleep. The patient has been cleared by Dr. Suarez. REVIEW OF SYSTEMS: The patient is feeling weak, still depressed, anxious, somatic. She states she cannot sleep and not eating, seen in her room, awaiting for transfer to [facility] Unit PHYSICAL EXAMINATION: VITAL SIGNS: Temperature 97.4, pulse 80, blood pressure 110/72, respirations 20, and oxygen saturation is 96%. SKIN: No diaphoresis. HEENT: No headache. No dizziness. NECK: Supple. RESPIRATORY: No dyspnea. CARDIOVASCULAR: No chest pain. GASTROINTESTINAL: Poor appetite. EXTREMITIES: The patient is ambulatory. MUSCULOSKELETAL: Feels weak. NEUROLOGIC: Alert, oriented x3. GENITOURINARY: No urinary problems. MENTAL STATUS EXAMINATION: Elderly female, who looks stated age, clinically depressed. Affect is reactive. Speech spontaneous. Thought process, coherent. Thought content, has no psychosis. No suicidal or homicidal ideation. The patient willing to go for inpatient geropsych treatment. Attention and memory seem to be fair. Insight and judgment fair. Impulse control is fair stated. No active suicidal or homicidal ideation. No psychosis. IMPRESSION: History of bipolar disorder and mild dementia. PLAN AND RECOMMENDATION: The patient is seen. Meds reviewed. We will transfer the patient today to [place]. The patient has been accepted by the inpatient geriatric psychiatrist at [place]. Rancho Cordero MD
--- NOTE | 2018-11-29 15:35 | CARD ---
APPROVED REPORT Date of service: 11/27/2018 EKG Measurement Heart [id number] <Conclusion> Normal sinus rhythm Possible Inferior infarct, age undetermined Abnormal ECG
--- NOTE | 2018-11-29 16:49 | CP.PCM.PN ---
Objective - Vital Signs/Intake and Output Vital Signs (last 24 hours): Temp Pulse Resp BP Pulse Ox 97.4 F L 80 20 110/72 96 11/29/18 07:00 11/29/18 07:00 11/29/18 07:00 11/29/18 07:00 11/29/18 07:00 - Medications Medications: Current Medications Aspirin (Ecotrin) 81 mg PO DAILY [facility] Last Admin: 11/29/18 11:23 Dose: 81 mg Clonazepam (Klonopin) 0.5 mg PO Q8H [facility] Last Admin: 11/29/18 11:23 Dose: 0.5 mg Dextrose (Dextrose 50% Inj) 0 ml IV STAT PRN; Protocol PRN Reason: Hypoglycemia Protocol Dextrose (Glutose 15) 0 gm PO ONCE PRN; Protocol PRN Reason: Hypoglycemia Protocol Enoxaparin Sodium (Lovenox) 40 mg SC DAILY [facility] Last Admin: 11/29/18 11:23 Dose: 40 mg Glucagon (Glucagen Diagnostic Kit) 0 mg IM STAT PRN; Protocol PRN Reason: Hypoglycemia Protocol Insulin Aspart (Novolog) 0 unit SC ACHS [facility]; Protocol Last Admin: 11/29/18 11:28 Dose: 3 units Insulin Aspart (Novolog) 5 unit SC AC [facility] Last Admin: 11/29/18 11:29 Dose: 5 units Insulin Glargine (Lantus) 20 unit SC HS [facility] Last Admin: 11/28/18 21:41 Dose: 20 unit Levothyroxine Sodium (Synthroid) 88 mcg PO 0630 [facility] Last Admin: 11/29/18 06:14 Dose: 88 mcg Meclizine HCl (Antivert) 25 mg PO Q8 PRN PRN Reason: Dizziness Metformin HCl (Glucophage) 500 mg PO BIDCC [facility] Last Admin: 11/29/18 08:33 Dose: 500 mg Pantoprazole Sodium (Protonix Ec Tab) 40 mg PO DAILY [facility] Last Admin: 11/29/18 11:33 Dose: 40 mg Quetiapine Fumarate (Seroquel) 400 mg PO [facility] Last Admin: 11/28/18 21:36 Dose: 400 mg Rosuvastatin Calcium (Crestor) 40 mg PO HS [facility] Zolpidem Tartrate (Ambien) 5 mg PO HS [facility] Last Admin: 11/28/18 21:36 Dose: 5 mg - Labs Labs: 11/23/18 14:24 11/27/18 13:30 Assessment and Plan - Assessment and Plan (Free Text) Assessment: 73 year old female with bipolar, dizziness, seen and examined. Awake, confused, no agitation. Discussed with DR Suarez, DR George, [facility]. Medically stable, no acute distress.
--- NOTE | 2018-11-29 17:43 | PN ---
DATE: 11/29/2018 SUBJECTIVE: The patient is still experiencing anxiety and depression. She denies any chest pain or shortness of breath. No dizziness. PHYSICAL EXAMINATION: VITAL SIGNS: Blood pressure 110/72, heart rate 80, temperature 97.4, respirations 20. HEENT: Normocephalic. CHEST: Clear. HEART: S1 and S2 regular. EXTREMITIES: No edema. LABORATORY DATA: Today's blood sugar is 179 and 206 respectively. ASSESSMENT: 1. Dizziness and near syncope. 2. Status post fall with fracture of the left ring finger. 3. Anxiety and depression. 4. Uncontrolled diabetes mellitus. 5. Cholestasis. RECOMMENDATIONS: Continue aspirin 81 mg once a day, metformin 500 mg twice a day, Lovenox 40 mg subcutaneously once a day, Protonix 40 mg once a day, Synthroid 88 mcg once a day. Discontinue Tylenol in view of elevated liver enzymes. The patient will be transferred to geriatric psych unit at [facility]. Koko Collins MD
--- NOTE | 2018-11-29 19:01 | CP.PCM.DIS ---
Provider - Provider Date of Admission: 11/25/18 17:57 Attending physician: Emmett Suarez MD Consults: 11/24/18 23:04 Cardiology Consult Routine Comment: Consulting Provider: Koko Collins Consulting Physician: Koko Collins Reason for Consult: dizziness 11/25/18 13:16 Psychiatry Consult Routine Comment: Consulting Provider: Rancho Velasco Consulting Physician: Rancho Velasco Reason for Consult: depression, anxiety 11/25/18 19:07 Case Management Referral Routine Comment: Physician Instructions: Reason For Exam: Reason for Referral: Membership Advisor Eval Time Spent in preparation of Discharge (in minutes): 25 Hospital Course - Lab Results Lab Results: Micro Results 11/23/18 15:34 Urine Random Urine Culture - Final <10,000 CFU/ML. MULTIPLE SPECIES. PROBABLE CONTAMINATION. Most Recent Lab Values WBC 8.4 K/uL (4.8-10.8) 11/23/18 14:24 RBC 5.04 Mil/uL (3.80-5.20) 11/23/18 14:24 Hgb 15.7 g/dL (11.0-16.0) 11/23/18 14:24 Hct 46.6 % (34.0-47.0) 11/23/18 14:24 MCV 92.4 fL (81.0-99.0) 11/23/18 14:24 MCH 31.0 pg (27.0-31.0) 11/23/18 14:24 MCHC 33.6 g/dL (33.0-37.0) 11/23/18 14:24 RDW 14.2 % (11.5-14.5) 11/23/18 14:24 Plt Count 375 K/uL (130-400) 11/23/18 14:24 MPV 8.2 fL (7.2-11.7) 11/23/18 14:24 Neut % (Auto) 69.3 % (50.0-75.0) 11/23/18 14:24 Lymph % (Auto) 24.5 % (20.0-40.0) 11/23/18 14:24 [place] % (Auto) 5.4 % (0.0-10.0) 11/23/18 14:24 Eos % (Auto) 0.3 % (0.0-4.0) 11/23/18 14:24 Baso % (Auto) 0.5 % (0.0-2.0) 11/23/18 14:24 Neut # (Auto) 5.8 K/uL (1.8-7.0) 11/23/18 14:24 Lymph # (Auto) 2.1 K/uL (1.0-4.3) 11/23/18 14:24 [place] # (Auto) 0.5 K/uL (0.0-0.8) 11/23/18 14:24 Eos # (Auto) 0.0 K/uL (0.0-0.7) 11/23/18 14:24 Baso # (Auto) 0.0 K/uL (0.0-0.2) 11/23/18 14:24 D-Dimer, Quantitative 664 ng/mlDDU (0-243) H 11/25/18 17:06 pO2 49 mm/Hg (30-55) 11/23/18 15:09 VBG pH 7.41 (7.32-7.43) 11/23/18 15:09 VBG pCO2 36 mmHg (40-60) L 11/23/18 15:09 VBG HCO3 23.5 mmol/L 11/23/18 15:09 VBG Total CO2 23.9 mmol/L (22-28) 11/23/18 15:09 VBG O2 Sat (Calc) 90.8 % (40-65) H 11/23/18 15:09 VBG Base Excess -1.4 mmol/L (0.0-2.0) L 11/23/18 15:09 VBG Potassium 3.1 mmol/L (3.6-5.2) L 11/23/18 15:09 Sodium 135.0 mmol/l (132-148) 11/23/18 15:09 Chloride 99.0 mmol/L (98-107) 11/23/18 15:09 Glucose 418 mg/dl (65-105) H* 11/23/18 15:09 Lactate 2.9 mmol/L (0.7-2.1) H 11/23/18 15:09 Crit Value Called To Dr. henderson 11/23/18 15:09 Crit Value Called By Darrius chin 11/23/18 15:09 Crit Value Read Back Y 11/23/18 15:09 Blood Gas Notified Time 1512 11/23/18 15:09 Sodium 137 mmol/L (132-148) 11/27/18 13:30 Potassium 3.3 mmol/L (3.6-5.2) L 11/27/18 13:30 Chloride 103 mmol/L (98-107) 11/27/18 13:30 Carbon Dioxide 26 mmol/L (22-30) 11/27/18 13:30 Anion Gap 11 (10-20) 11/27/18 13:30 BUN 13 mg/dL (7-17) 11/27/18 13:30 Creatinine 0.5 mg/dL (0.7-1.2) L 11/27/18 13:30 Est GFR ( Amer) > 60 11/27/18 13:30 Est GFR (Non-Af Amer) > 60 11/27/18 13:30 POC Glucose (mg/dL) 206 mg/dL (65-110) H 11/29/18 11:10 Random Glucose 279 mg/dL (65-105) H D 11/27/18 13:30 Hemoglobin A1c 11.6 % (4.2-6.5) H 11/24/18 07:02 Calcium 8.9 mg/dl (8.6-10.4) 11/27/18 13:30 Total Bilirubin 0.4 mg/dL (0.2-1.3) 11/24/18 07:02 Direct Bilirubin 0.3 mg/dL (0.0-0.4) 11/24/18 07:02 AST 36 U/L (14-36) D 11/24/18 07:02 ALT 172 U/L (9-52) H D 11/24/18 07:02 Alkaline Phosphatase 191 U/L (38-126) H D 11/24/18 07:02 Troponin I < 0.0120 ng/mL (0.00-0.120) 11/24/18 07:02 Total Protein 6.5 g/dL (6.3-8.3) 11/24/18 07:02 Albumin 3.5 g/dL (3.5-5.0) 11/24/18 07:02 Globulin 3.0 gm/dL (2.2-3.9) 11/24/18 07:02 Albumin/Globulin Ratio 1.2 (1.0-2.1) 11/24/18 07:02 TSH 3rd Generation 6.53 mIU/L (0.46-4.68) H 11/24/18 07:02 Venous Blood Potassium 3.1 mmol/L (3.6-5.2) L 11/23/18 15:09 Urine Color Yellow (YELLOW) 11/23/18 14:24 Urine Clarity Clear (Clear) 11/23/18 14:24 Urine pH 6.0 (5.0-8.0) 11/23/18 14:24 Ur Specific [place] 1.023 (1.003-1.030) 11/23/18 14:24 Urine Protein Negative mg/dL (NEGATIVE) 11/23/18 14:24 Urine Glucose (UA) 3+ mg/dL (Normal) H 11/23/18 14:24 Urine Ketones Trace mg/dL (NEGATIVE) 11/23/18 14:24 Urine Blood Negative (NEGATIVE) 11/23/18 14:24 Urine Nitrate Negative (NEGATIVE) 11/23/18 14:24 Urine Bilirubin Negative (NEGATIVE) 11/23/18 14:24 Urine Urobilinogen Normal mg/dL (0.2-1.0) 11/23/18 14:24 Ur Leukocyte Esterase Neg Tomás/uL (Negative) 11/23/18 14:24 Urine WBC (Auto) 1 /hpf (0-5) 11/23/18 14:24 Urine RBC (Auto) < 1 /hpf (0-3) 11/23/18 14:24 Ur Squamous Epith Cells 2 /hpf (0-5) 11/23/18 14:24 Urine Opiates Screen Negative (NEGATIVE) 11/28/18 14:51 Urine Methadone Screen Negative (NEGATIVE) 11/28/18 14:51 Ur Barbiturates Screen Negative (NEGATIVE) 11/28/18 14:51 Ur Phencyclidine Scrn Negative (NEGATIVE) 11/28/18 14:51 Ur Amphetamines Screen Negative (NEGATIVE) 11/28/18 14:51 U Benzodiazepines Scrn Negative (NEGATIVE) 11/28/18 14:51 U Oth Cocaine Metabols Negative (NEGATIVE) 11/28/18 14:51 U Cannabinoids Screen Negative (NEGATIVE) 11/28/18 14:51 Alcohol, Quantitative < 10 mg/dl (0-10) 11/28/18 13:57 B-Hydroxybutyrate 0.18 mM (0.02-0.27) 11/23/18 14:59 Discharge Plan - Follow Up Plan Condition: GUARDED Disposition: HOME/ ROUTINE Instructions: Syncope (Fainting) (DC)
[2018-11-29 20:06] VITALS: BP 104/65; PULSE 81; TEMP 98.3; O2SAT 93
--- NOTE | 2018-12-02 08:11 | DS ---
DATE: 11/29/2018 SUBJECTIVE: The patient is for discharge today on hospital. The patient is feeling better. Her blood pressure is better. Her hemoglobin is better. Her sugar went down as she is feeling better. She is not dizzy. No nausea or vomiting. DISCHARGE DIAGNOSES: 1. Vertigo. 2. Poorly controlled diabetes. 3. Poorly controlled hypertension. 4. Depression. PHYSICAL EXAMINATION: VITAL SIGNS: Blood pressure 110/72, pulse 80, respiratory rate 20, temperature 97.4. Emmett Suarez MD
== END 2018-11-29 22:41 | disposition short-term general hospital (02) | DRG 562 ==
LOC: C.ER 13:44 → C.9E 15:58 → C.6T 17:00 → OBSVTOIN 11-25 17:57
PROVIDERS: ADMIT Internal Medicine; ATTEND Internal Medicine
PROC: 0PSVXZZ Reposition Left Finger Phalanx, External Approach (ICD-10-PCS; principal; 2018-11-25)
DX: S62.615A Displaced fracture of proximal phalanx of left ring finger, initial encounter for closed fracture (principal); K83.1 Obstruction of bile duct; F32.2 Major depressive disorder, single episode, severe without psychotic features; H81.10 Benign paroxysmal vertigo, unspecified ear; R55 Syncope and collapse; E87.6 Hypokalemia; E86.0 Dehydration; E11.65 Type 2 diabetes mellitus with hyperglycemia; W18.39XA Other fall on same level, initial encounter; I10 Essential (primary) hypertension; I25.2 Old myocardial infarction; F41.9 Anxiety disorder, unspecified; F03.90 Unspecified dementia, unspecified severity, without behavioral disturbance, psychotic disturbance, mood disturbance, and anxiety; Z91.5 Personal history of self-harm; E03.9 Hypothyroidism, unspecified; E78.00 Pure hypercholesterolemia, unspecified; Z91.11 Patient's noncompliance with dietary regimen; Z91.14 Patient's other noncompliance with medication regimen; F39 Unspecified mood [affective] disorder